=== PATIENT | male | born 2000 | race Asian ===

== ENCOUNTER 2019-08-23 18:22 | Emergency (ER) | payer OTHER ==
[2019-08-23] MEDS ORDERED: Dexamethasone 10 MG/ML VIAL ONE (18:44)
[2019-08-23 19:49] LABS: ALT (SGPT) 22 U/L (8-55); AST (SGOT) 23 U/L (10-45); Albumin 4.9 g/dL (3.5-5.0); Alkaline Phosphatase 69 U/L (50-130); Anion Gap 17 mmol/L (10-20); BUN (Urea Nitrogen) 10 mg/dL (8.4-21.0); Bilirubin, Total 0.4 mg/dL (0.2-1.2); Calc. Creatinine Clearance 0 mL/min (70-130); Carbon Dioxide 26 mmol/L (22-29); Chloride 102 mmol/L (98-107); Estimated GFR-MDRD Greater than 90; Globulin 3.1 g/dL (2.4-3.5); Glucose 94 mg/dL (70-105); Sodium 142 mmol/L (136-145)
[2019-08-23 19:52] LABS: Band 1 % (5-11); Eosinophils 2 % (0-10); Hemoglobin 15.2 g/dL (14.0-18.0); Lymphocytes 53 % (28-48); MDiff Complete? YES; Mean Corpuscular HGB CONC 33.3 g/dL (32.0-36.0); Mean Corpuscular Hemoglobin 30.5 pg (25.0-35.0); Mean Corpuscular Volume 91.5 fL (78.0-98.0); Mean Platelet Volume 5.7 fL (7.4-10.4); Monocytes 7 % (0-4); Neutrophil 31 % (31-61); Platelet Count 315 thou/uL (130-400); Platelet Morphology Comment Appears Adequate; RBC Distribution Width 11.6 % (11.5-14.5); RBC Morphology Normal; Reactive Lymphocytes 5 % (0-10); Red Blood Cell (RBC) Count 4.98 mill/uL (4.00-5.20); White Blood Cell (WBC) Count 6.8 thou/uL (4.8-10.8)
== END 2019-08-23 23:16 | disposition home or self-care (01) ==
LOC: SCSER 18:22
DX: T45.0X1A Poisoning by antiallergic and antiemetic drugs, accidental (unintentional), initial encounter (principal)
CPT/HCPCS: 80053; 85025; 93005; 96361; 96374; J1100